=== PATIENT | female | born 1960 | race Caucasian/White ===

== ENCOUNTER 2018-02-08 11:33 | Emergency (ER) | payer BC ==
[2018-02-08 11:44] VITALS: RESP 18; TEMP 98.3
[2018-02-08 11:59] LABS: Appearance,Urine Clear (Clear); Bilirubin,Urine Negative (Negative); Blood,Urine Negative (Negative); Color,Urine Light Yellow; Glucose,Urine (UA) Negative (Negative); Ketones,Urine Negative (Negative); Leukocyte Esterase,Urine Negative (Negative); Nitrite,Urine Negative (Negative); Protein,Urine Negative (Negative); Specific Gravity,Urine 1.004 (1.001-1.035); Urobilinogen,Urine <2.0 mg/dL (<2.0)
[2018-02-08 12:24] LABS: Basophils % (A) 0 %; Eosinophils # (A) 0.1 k/uL (0-0.7); Eosinophils % (A) 1 %; HCT 45.5 % (34.0-46.0); HGB 15.7 gm/dL (11.4-16.0); Lymphocytes # (A) 1.1 k/uL (1.0-4.8); Lymphocytes % (A) 17 %; MCH 28.7 pg (25.0-35.0); MCHC 34.4 g/dL (31.0-37.0); MCV 83.3 fL (80.0-100.0); Mean Platelet Volume 6.8; Monocytes # (A) 0.3 k/uL (0-1.0); Monocytes % (A) 5 %; Neutrophils % (A) 76 %; Platelet Count 329 k/uL (150-450); RBC 5.46 m/uL (3.80-5.40); RDW 13.3 % (11.5-15.5); WBC 6.6 k/uL (3.8-10.6)
[2018-02-08 12:35] LABS: ALT 43 U/L (9-52); AST 27 U/L (14-36); Albumin 4.6 g/dL (3.5-5.0); Alkaline Phosphatase 73 U/L (38-126); Amylase 70 U/L (30-110); Anion Gap 12 mmol/L; Blood Urea Nitrogen 11 mg/dL (7-17); Calcium 10.5 mg/dL (8.4-10.2); Carbon Dioxide 29 mmol/L (22-30); Chloride 101 mmol/L (98-107); Glucose 105 mg/dL (74-99); Lipase 83 U/L (23-300); Potassium 4.1 mmol/L (3.5-5.1); Sodium 142 mmol/L (137-145); Total Bilirubin 0.4 mg/dL (0.2-1.3); Total Protein 7.5 g/dL (6.3-8.2)
[2018-02-08] MEDS ORDERED: KETOROLAC 60 MG/2 ML VIAL IM STA (12:47)
[2018-02-08] MEDS ORDERED: ONDANSETRON ODT 4 MG TAB PO STA (12:47)
--- NOTE | 2018-02-08 12:53 | ED ---
Abdominal Pain HPI - General Chief Complaint: Abdominal Pain Stated Complaint: Abd Pain Time Seen by Provider: 02/08/18 12:40 Source: patient, RN notes reviewed Mode of arrival: ambulatory Limitations: no limitations - History of Present Illness Initial Comments: This is a 57-year-old female presents emergency Department chief complaint of right upper quadrant abdominal pain. Patient has been having worsening pain last states last nephrology has worsened much more considerably. Patient was seen at [facility] yesterday for this pain and all sorts of gallstones. Patient has appointment tomorrow with Dr. Tian. Patient called office advised him come emergency department secondary to the pain. Patient states she 's also had nausea. She was not discharged with any pain medication or nausea medication yesterday. Patient reports no fever no chills. Denies any diarrhea no issues urinating including dysuria or hematuria. Patient felt slightly constipated. Patient denies any chest pain or shortness of breath. - Related Data Previous Rx's Medication Instructions Recorded Hydrocodone/Acetaminophen [[place] 1 tab PO Q6HR PRN #12 tab 02/08/18 5-325] Ondansetron Odt [Zofran Odt] 4 mg PO Q8HR PRN #10 tab 02/08/18 Allergies Allergy/AdvReac Type Severity Reaction Status Date / Time adhesive tape Allergy Rash/Hives Verified 02/08/18 11:44 Review of Systems ROS Statement: Those systems with pertinent positive or pertinent negative responses have been documented in the HPI. ROS Other: All systems not noted in ROS Statement are negative. Past Medical History Past Medical History: Hypertension Additional Past Medical History / Comment(s): herpes, gallstones History of Any Multi-Drug Resistant Organisms: None Reported Past Surgical History: Section Past Psychological History: No Psychological Hx Reported Smoking Status: Never smoker Past Alcohol Use History: Occasional Past Drug Use History: None Reported General Exam Limitations: no limitations General appearance: alert, in no apparent distress Head exam: Present: atraumatic, normocephalic, normal inspection Respiratory exam: Present: normal lung sounds bilaterally. Absent: respiratory distress, wheezes, rales, rhonchi, stridor Cardiovascular Exam: Present: regular rate, normal rhythm, normal heart sounds. Absent: systolic murmur, diastolic murmur, rubs, gallop, clicks GI/Abdominal exam: Present: soft, tenderness (Moderate right quadrant tenderness ), normal bowel sounds. Absent: distended, guarding, rebound, rigid Back exam: Absent: CVA tenderness (R), CVA tenderness (L) Skin exam: Present: warm, dry, intact, normal color. Absent: rash Course Vital Signs 02/08/18 11:41 Temperature 98.3 F Pulse Rate 90 Respiratory 18 Rate Blood Pressure 166/103 O2 Sat by Pulse 96 Oximetry Medical Decision Making - Medical Decision Making 57-year-old female presented emergency Department for right quadrant abdominal pain. Patient has known gallstones has appointment with surgeon tomorrow. Patient will be provided pain medication, nausea medication and discharged to her appointment tomorrow. - Lab Data Result diagrams: 02/08/18 12:10 02/08/18 12:10 Lab Results 02/08/18 02/08/18 02/08/18 Range/Units 11:46 12:10 12:10 WBC 6.6 (3.8-10.6) k/uL RBC 5.46 H (3.80-5.40) m/uL Hgb 15.7 (11.4-16.0) gm/dL Hct 45.5 (34.0-46.0) % MCV 83.3 (80.0-100.0) fL MCH 28.7 (25.0-35.0) pg MCHC 34.4 (31.0-37.0) g/dL RDW 13.3 (11.5-15.5) % Plt Count 329 (150-450) k/uL Neutrophils % 76 % Lymphocytes % 17 % Monocytes % 5 % Eosinophils % 1 % Basophils % 0 % Neutrophils # 5.0 (1.3-7.7) k/uL Lymphocytes # 1.1 (1.0-4.8) k/uL Monocytes # 0.3 (0-1.0) k/uL Eosinophils # 0.1 (0-0.7) k/uL Basophils # 0.0 (0-0.2) k/uL Sodium 142 (137-145) mmol/L Potassium 4.1 (3.5-5.1) mmol/L Chloride 101 (98-107) mmol/L Carbon Dioxide 29 (22-30) mmol/L Anion Gap 12 mmol/L BUN 11 (7-17) mg/dL Creatinine 0.80 (0.52-1.04) mg/dL Est GFR (CKD-EPI)AfAm >90 (>60 ml/min/1.73 sqM) Est GFR (CKD-EPI)NonAf 82 (>60 ml/min/1.73 sqM) Glucose 105 H (74-99) mg/dL Calcium 10.5 H (8.4-10.2) mg/dL Total Bilirubin 0.4 (0.2-1.3) mg/dL AST 27 (14-36) U/L ALT 43 (9-52) U/L Alkaline Phosphatase 73 (38-126) U/L Total Protein 7.5 (6.3-8.2) g/dL Albumin 4.6 (3.5-5.0) g/dL Amylase 70 (30-110) U/L Lipase 83 (23-300) U/L Urine Color Light Yellow Urine Appearance Clear (Clear) Urine pH 7.0 (5.0-8.0) Ur Specific [place] 1.004 (1.001-1.035) Urine Protein Negative (Negative) Urine Glucose (UA) Negative (Negative) Urine Ketones Negative (Negative) Urine Blood Negative (Negative) Urine Nitrite Negative (Negative) Urine Bilirubin Negative (Negative) Urine Urobilinogen <2.0 (<2.0) mg/dL Ur Leukocyte Esterase Negative (Negative) Disposition Clinical Impression: Gallstones, Abdominal pain Disposition: HOME SELF-CARE Condition: Stable Instructions: Abdominal Pain (ED), Gallstones (ED) Additional Instructions: Please return to the Emergency Department if symptoms worsen or any other concerns. Prescriptions: Hydrocodone/Acetaminophen [[place] 5-325] 1 tab PO Q6HR PRN #12 tab PRN Reason: Pain Ondansetron Odt [Zofran Odt] 4 mg PO Q8HR PRN #10 tab PRN Reason: Nausea Is patient prescribed a controlled substance at d/c from ED?: Yes When asked, does pt state using other controlled substances?: No If prescribed controlled substance>3 days was MAPS reviewed?: Prescribed <3 Days If opioid is for acute pain is fill amount 7 days or less?: Yes If Rx opioid, was Start Talking consent form obtained?: Yes Referrals: Denver Sapp MD [Primary Care Provider] - 1-2 days Autumn Kennedy MD [STAFF PHYSICIAN] - 1-2 days Time of Disposition: 12:53
[2018-02-08 13:09] VITALS: BP 140/90; PULSE 84
== END 2018-02-08 13:19 | disposition home or self-care (01) ==
LOC: EC 11:33 → MERGE 11:33 → EC 13:19
DX: K80.20 Calculus of gallbladder without cholecystitis without obstruction (principal); R10.11 Right upper quadrant pain; R11.0 Nausea; Z91.09 Other allergy status, other than to drugs and biological substances
CPT/HCPCS: 36415; 80053; 82150; 83690; 85025; 81003; 99284; 96372; J1885

== ENCOUNTER 2018-02-11 14:39 | Day surgery (SDC) | payer BC ==
--- NOTE | 2018-02-11 07:30 | P.GSHP ---
History of Present Illness H&P Date: 02/11/18 CHIEF COMPLAINT: Cholecystitis HISTORY OF PRESENT ILLNESS: The patient is a 57-year-old female who presents with history of epigastric including right upper quadrant abdominal pain. She underwent diagnostic studies for her gallbladder. Separately her clinical picture was consistent with cholecystitis. Now she presents for surgical intervention. PAST MEDICAL HISTORY: Please see list PAST SURGICAL HISTORY: Please see list MEDICATIONS: Please see list ALLERGIES: See above. SOCIAL HISTORY: No illicit drug use FAMILY HISTORY: Pertinent for gallbladder disease REVIEW OF ORGAN SYSTEMS: CONSTITUTIONAL: No reports of fevers or chills. HEENT: Denies any troubles with the vision or hearing. HEMATOLOGIC: No personal or family history of DVTs or pulmonary emboli. PHYSICAL EXAM: VITAL SIGNS: Afebrile vital signs stable GENERAL: Well-developed pleasant in no acute distress. HEENT: No scleral icterus. Extraocular movements grossly intact. Moist buccal mucosa. NECK: Supple without lymphadenopathy. CHEST: Unlabored respirations. Equal bilateral excursions. CARDIOVASCULAR: Regular rate regular rhythm rhythm. Distal 2+ pulses. ABDOMEN: Soft, nondistended. Tender along the epigastrium and right upper quadrant. MUSCULOSKELETAL: No clubbing, cyanosis, or edema. NEURO: Cranial nerves II to XII within normal limits. No focal or lateralizing signs. PSYCH: Alert and oriented to person, place and time. ASSESSMENT: 1. Epigastric and right upper quadrant abdominal pain 2. Chronic cholecystitis PLAN: 1. Will need a robotic cholecystectomy possible open. Benefits and risks were described. 2. Heparin for DVT prophylaxis 5000 units. 3. Antibiotic prophylaxis. Past Medical History Past Medical History: Hypertension Additional Past Medical History / Comment(s): herpes, gallstones History of Any Multi-Drug Resistant Organisms: None Reported Past Surgical History: Section Past Psychological History: No Psychological Hx Reported Smoking Status: Never smoker Past Alcohol Use History: Occasional Past Drug Use History: None Reported Medications and Allergies Home Medications Medication Instructions Recorded Confirmed Type Hydrocodone/Acetaminophen [[place] 1 tab PO Q6HR PRN #12 tab 02/08/18 Rx 5-325] Ondansetron Odt [Zofran Odt] 4 mg PO Q8HR PRN #10 tab 02/08/18 Rx Allergies Allergy/AdvReac Type Severity Reaction Status Date / Time adhesive tape Allergy Rash/Hives Verified 02/08/18 15:32
[~2018-02-11 14:39] MED LIST: HEPARIN SODIUM,PORCINE 5,000 UNIT/ML 1 ML VIAL SQ ONE; INDOCYANINE GREEN 25 MG VIAL IV STA; ceFAZolin IN SWFI 2 GM/20 ML SYRINGE IVP ONE
[2018-02-11] MEDS ORDERED: LACTATED RINGERS 1,000 ML IV ONE ×2 (15:39→18:40)
[2018-02-11] MEDS ORDERED: SCOPOLAMINE 1.5MG/72HR PATCH TRANSDERM ONE (15:39)
[2018-02-11] MEDS ORDERED: DEXAMETHASONE SOD PHOS (MDV) 100 MG/10 ML VIAL IVP ONE (15:44)
[2018-02-11] MEDS: ONDANSETRON 4 MG/2 ML VIAL IVP ONE ×2 (15:44→19:31)
[2018-02-11 15:51] LABS: Basophils % (A) 0 %; Eosinophils # (A) 0.1 k/uL (0-0.7); Eosinophils % (A) 1 %; HCT 44.3 % (34.0-46.0); HGB 14.7 gm/dL (11.4-16.0); Lymphocytes # (A) 1.2 k/uL (1.0-4.8); Lymphocytes % (A) 18 %; MCH 27.9 pg (25.0-35.0); MCHC 33.3 g/dL (31.0-37.0); Mean Platelet Volume 7.1; Monocytes # (A) 0.4 k/uL (0-1.0); Monocytes % (A) 5 %; Neutrophils # (A) 4.9 k/uL (1.3-7.7); Neutrophils % (A) 73 %; Platelet Count 314 k/uL (150-450); RBC 5.28 m/uL (3.80-5.40); RDW 13.1 % (11.5-15.5); WBC 6.7 k/uL (3.8-10.6)
[2018-02-11] MEDS ORDERED: ACETAMINOPHEN IV (For NPO) 1,000 MG in EMPTY BAG 1 BAG IVPB ONE (16:00)
[2018-02-11 16:01] LABS: ALT 42 U/L (9-52); AST 30 U/L (14-36); Albumin 4.6 g/dL (3.5-5.0); Alkaline Phosphatase 73 U/L (38-126); Anion Gap 12 mmol/L; Blood Urea Nitrogen 14 mg/dL (7-17); Calcium 9.8 mg/dL (8.4-10.2); Carbon Dioxide 30 mmol/L (22-30); Chloride 100 mmol/L (98-107); Glucose 98 mg/dL (74-99); Sodium 142 mmol/L (137-145); Total Bilirubin 0.5 mg/dL (0.2-1.3); Total Protein 7.7 g/dL (6.3-8.2)
[2018-02-11] MEDS ORDERED: BUPIVACAINE (PF) 0.5% 30 ML VIAL SQ ONE ×2 (17:48→18:13)
[2018-02-11] MEDS ORDERED: ROCURONIUM BROMIDE 10 MG/ML 10 ML VIAL IV ONE (17:50)
[2018-02-11] MEDS ORDERED: INDOCYANINE GREEN 25 MG VIAL IV ONE (17:50)
[2018-02-11] MEDS ORDERED: LIDOCAINE 1% INJ 10MG/ML (20 ML MDV) ONE (17:50)
[2018-02-11] MEDS ORDERED: HYDROmorphone (PF) 1 MG/ML ONE (17:50)
[2018-02-11] MEDS ORDERED: PROPOFOL 10 MG/ML 20 ML VIAL IV ONE (17:50)
[2018-02-11] MEDS ORDERED: NEOSTIGMINE 1 MG/ML 10 ML VIAL ONE (17:50)
[2018-02-11] MEDS ORDERED: ePHEDrine SULFATE/0.9% NACL/PF 50 MG/5 ML SYRINGE IV ONE (17:50)
[2018-02-11] MEDS ORDERED: fentaNYL (PF) 50 MCG/ML 2 ML AMP ONE (17:50)
[2018-02-11] MEDS ORDERED: KETOROLAC 30 MG/ML 1 ML VIAL ONE (17:50)
[2018-02-11] MEDS ORDERED: SUCCINYLCHOLINE CHLORIDE 100 MG/5 ML SYR IV ONE (17:50)
[2018-02-11] MEDS ORDERED: MIDAZOLAM 2 MG/2 ML VIAL ONE (17:50)
[2018-02-11] MEDS ORDERED: GLYCOPYRROLATE 0.2 MG/ML 2 ML VIAL ONE (17:50)
--- NOTE | 2018-02-11 19:21 | P.OP ---
Date of Procedure: 02/11/18 Description of Procedure: SURGEON: AUTUMN KENNEDY MD PREOPERATIVE DIAGNOSES: 1. Symptomatic gallstones 2. Chronic cholecystitis 3. Morbid obesity due to excess calories, BMI 44.3 4. Hypertensive heart disease POSTOPERATIVE DIAGNOSES: 1. Symptomatic gallstones 2. Chronic cholecystitis 3. Morbid obesity due to excess calories, BMI 44.3 4. Hypertensive heart disease OPERATION: Robotic-assisted da Radha Xi laparoscopic cholecystectomy, multiport with FIREFLY ESTIMATED BLOOD LOSS: 5 mL. SPECIMENS REMOVED: Gallbladder. COMPLICATIONS: None. OPERATIVE FINDINGS: 1. Symptomatic gallstones, 3 cm in size INDICATIONS: The patient is a 57-year-old female who presents with cholelcystitis. Surgical intervention with a laparoscopic cholecystectomy was described at length including injury to the biliary tree, bleeding, infection, need for further surgery. Informed consent was obtained. Robotic assisted laparoscopic approach was described. Benefits and risks of the procedure including but not limited to bleeding, infection, injury to the biliary tree was described. Informed consent was obtained. DESCRIPTION OF PROCEDURE: Patient was brought to the operating room, placed in supine position. After general induction, the abdomen had been prepped and draped in standard sterile fashion. The robotic da Radha XI system was primed. After a timeout protocol was performed, the patient had been prepped and draped in standard sterile fashion. The patient was injected with indocyanine green. A 5 mm 0 degrees laparoscopic trocar entry was performed along the left upper quadrant. The abdomen insufflated to 15 mmHg pressure which she tolerated well. Diagnostic laparoscopy demonstrated no injury to bowel viscera or mesentery. The liver surface was unremarkable. Next, two 8 mm robotic ports were placed along the right upper abdomen. The camera 8-mm port was maintained along the epigastrium. Another 8 mm port was placed along the left upper abdominal wall after exchanging the 5 mm port. Please note that the ports were placed at least 10 to 15 cm away from the target anatomy of the gallbladder. The robot was docked along the left lateral abdomen. The patient was repositioned in reverse Trendelenburg position. Using a grasper for arm 3, a grasper for arm 4, including hook cautery for arm 1 , the robotic system was docked and primed as described. Instruments were interchanged by the project assistant including hook cautery, Bovie cautery and clip appliers. I had sat at the console. Adhesions were identified along the infundibulum of the gallbladder and addressed using hook cautery. The gallbladder fundus was retracted over the dome of the liver. Initial attention was brought to the infundibulum which was gently retracted in the inferior lateral approach. Using a grasper, the cystic duct including the cystic artery was carefully skeletonized. FIREFLY was used to identify the cystic artery and cystic structures. Large PLASTIC clips were used throughout the entire case. Using a clip photograph developer 2 clips were placed proximally, and 1 clip was placed distally along the cystic duct and then cauterized with the cautery. Again care was taken to avoid any injury to the biliary tree as the common bile duct was clearly visualized during this portion of dissection. Next, the cystic artery was similarly clipped and cauterized. Electro-Bovie cautery was used to remove the gallbladder from the hepatic fossa. Hemostasis was checked and found to be adequate. The robot was undocked. I re-scrubbed into the case. Using a 10 mm Endo Catch bag via the left upper quadrant incision, the specimen was removed from the abdominal cavity. All pneumoperitoneum instruments were evacuated from the abdominal cavity. The incisions were reapproximated using 4-0 Monocryl in an interrupted subcuticular fashion. Fascial defect was closed using 0 Vicryl and Abelardo Wolff at the left upper quadrant. As the case was contaminated by 2 mL of bile, sponge was used to evacuate bile. All incisions were cleaned with dilute hydrogen peroxide followed by Optifoam at the left upper quadrant incision. Please note along the trocar sites, local anesthetic was placed as a field block prior to insertion of all instruments. Liquid glue was applied to the skin. At the end of the procedure needle, sponge, and instrument count had been verified correct by the nursing surgical services director. The patient was transferred to postanesthesia care unit in stable condition. Intraoperative films were shared with the patient's family who were very pleased with the level of care. Plan - Discharge Summary New Discharge Prescriptions: New Ibuprofen [Motrin] 600 mg PO Q8HR PRN #20 tab PRN Reason: Pain HYDROcodone/APAP 5-325MG [[place] 5-325] 1 tab PO Q4HR PRN 3 Days #18 tab PRN Reason: Pain No Action Hydrocodone/Acetaminophen [[place] 5-325] 1 tab PO Q6HR PRN #12 tab PRN Reason: Pain Ondansetron Odt [Zofran Odt] 4 mg PO Q8HR PRN #10 tab PRN Reason: Nausea Valsartan/Hydrochlorothiazide [[place] Hct 320-25 mg Tablet] 1 tab PO DAILY amLODIPine [Norvasc] 10 mg PO DAILY Acyclovir [Zovirax] 400 mg PO BID Discharge Medication List Hydrocodone/Acetaminophen [[place] 5-325] 1 tab PO Q6HR PRN #12 tab 02/08/18 [Rx] Ondansetron Odt [Zofran Odt] 4 mg PO Q8HR PRN #10 tab 02/08/18 [Rx] Acyclovir [Zovirax] 400 mg PO BID 02/11/18 [History] HYDROcodone/APAP 5-325MG [[place] 5-325] 1 tab PO Q4HR PRN 3 Days #18 tab [Rx] Ibuprofen [Motrin] 600 mg PO Q8HR PRN #20 tab 02/11/18 [Rx] Valsartan/Hydrochlorothiazide [Diovan Hct 320-25 mg Tablet] 1 tab PO DAILY 02/11 [History] amLODIPine [Norvasc] 10 mg PO DAILY 02/11/18 [History] Follow up Appointment(s)/Referral(s): Autumn Kennedy MD [STAFF PHYSICIAN] - 02/16/18 Patient Instructions/Handouts: *Surgery [facility] - (Anesthesia) Discharge Instructions Outpatient Surgery, *Surgery [facility] - Scopalamine Patch Instructions, Laparoscopic Cholecystectomy (DC) Activity/Diet/Wound Care/Special Instructions: May shower. No bath tub soaks. Low-fat diet. No lifting over 4 pounds 1 week. Discharge Disposition: HOME SELF-CARE
[2018-02-11 19:30] VITALS: TEMP 96.8
[2018-02-11 20:15] VITALS: RESP 16
[2018-02-11] MEDS ORDERED: HYDROcodone/APAP 5-325MG 1 EACH TAB PO ONE (20:28)
[2018-02-11 21:00] VITALS: BP 143/78; PULSE 83
== END 2018-02-11 21:52 | disposition home or self-care (01) ==
LOC: OR 14:39
PROVIDERS: ATTEND Surgery Plastic and Reconstructive Surgery
DX: K80.10 Calculus of gallbladder with chronic cholecystitis without obstruction (principal); K66.0 Peritoneal adhesions (postprocedural) (postinfection); E66.01 Morbid (severe) obesity due to excess calories; Z68.41 Body mass index [BMI] 40.0-44.9, adult; I11.9 Hypertensive heart disease without heart failure; K21.9 Gastro-esophageal reflux disease without esophagitis; Z91.048 Other nonmedicinal substance allergy status; Z79.899 Other long term (current) drug therapy; Z79.1 Long term (current) use of non-steroidal anti-inflammatories (NSAID)
CPT/HCPCS: 88304; 80053; 85025; 47562; J2250; J1644; J2710; J2405; J2001; J3010; J1885; J1170; J1100; J0330; J2704; J0690

== ENCOUNTER → 2018-12-22 | Outpatient (CLI) | payer BC ==
--- NOTE | 2018-12-22 11:30 | CT ---
EXAMINATION TYPE: CT abdomen pelvis wo con DATE OF EXAM: 12/22/2018 HISTORY: Stomach pains for months worse this week. Epigastric and left upper quadrant pain per order. CT DLP: 1157 mGycm. Automated Exposure Control for Dose Reduction was Utilized. TECHNIQUE: CT scan of the abdomen and pelvis is performed with oral but without IV contrast. COMPARISON: NONE FINDINGS: Within the limitations of a non-contrast study, the following observations are made. LUNG BASES: No significant abnormality is appreciated. LIVER/GB: Gallbladder is not visualized and presumed surgically absent though no distinct cholecystec michelle clips are present. PANCREAS: No significant abnormality is seen. SPLEEN: No significant abnormality is seen. ADRENALS: No significant abnormality is seen. KIDNEYS: No renal stones or hydronephrosis is seen bilaterally. BOWEL: Oral contrast reaches level of the rectum. Stomach shows satisfactory distention and is felt w ithin normal limits. No suspicious small or large bowel dilatation. Portions of distal colon are subo ptimally evaluated as are not well distended. GENITAL ORGANS: Anteverted uterus is seen which is slightly lobulated suggesting underlying fibroids particularly right aspect. No suspicious adnexal masses. Ovaries not well visualized. LYMPH NODES: No greater than 1cm abdominal or pelvic lymph nodes are appreciated. OSSEOUS STRUCTURES: No significant abnormality is seen. OTHER: There is left mid abdominal hernia defect axial image 46 along lateral aspect of rectus sheath containing mesenteric fat. I suspect incisional hernia from prior laparoscopic surgery as there is s car tissue at this level. IMPRESSION: No suspicious acute findings seen to account for patient's symptoms of stomach pain. Vent ral wall hernia left midabdomen favored incisional hernia containing mesenteric fat. Fibroid uterus s uspected.
== END | disposition home or self-care (01) ==
LOC: RADCTMAIN 09:29
PROVIDERS: ATTEND Family Medicine
DX: K43.9 Ventral hernia without obstruction or gangrene (principal)
CPT/HCPCS: 74176

== ENCOUNTER → 2019-09-21 | Outpatient (CLI) | payer BC ==
--- NOTE | 2019-09-21 14:05 | XR ---
EXAMINATION TYPE: XR abdomen 1V DATE OF EXAM: 09/21/2019 COMPARISON: NONE HISTORY: Abdominal pain TECHNIQUE: One view abdominal series FINDINGS: The osseous structures are intact. The bowel gas pattern is nonspecific. Tiny 2 mm calcification the right hemipelvis. This is nonspecific.. Hypertrophic and degenerative change of the vertebral column . Sclerosis involving the left iliac bone likely related to bone island. IMPRESSION: 1. Nonspecific abdomen.
== END ==
LOC: RADXRYALE 13:12
PROVIDERS: ATTEND Physician Assistant Medical
DX: R10.9 Unspecified abdominal pain (principal)
CPT/HCPCS: 74018

== ENCOUNTER 2021-11-23 18:44 | Emergency (ER) | payer OTHER ==
[2021-11-23 18:49] VITALS: TEMP 98
[2021-11-23] MEDS ORDERED: SODIUM CHLORIDE 0.9% 1,000 ML IV ONE (20:06)
[2021-11-23 20:27] LABS: Basophils # (A) 0.1 k/uL (0-0.2); Basophils % (A) 1 %; Eosinophils # (A) 0.1 k/uL (0-0.7); Eosinophils % (A) 1 %; HCT 43.2 % (34.0-46.0); HGB 14.4 gm/dL (11.4-16.0); Lymphocytes % (A) 12 %; MCH 29.6 pg (25.0-35.0); MCHC 33.4 g/dL (31.0-37.0); MCV 88.7 fL (80.0-100.0); Monocytes # (A) 0.4 k/uL (0-1.0); Monocytes % (A) 4 %; Neutrophils # (A) 7.3 k/uL (1.3-7.7); Neutrophils % (A) 81 %; Platelet Count 346 k/uL (150-450); RBC 4.87 m/uL (3.80-5.40); RDW 12.9 % (11.5-15.5); WBC 8.9 k/uL (3.8-10.6)
--- NOTE | 2021-11-23 20:30 | ED ---
General Adult HPI - General Chief complaint: Vaginal Bleeding Stated complaint: Vaginal Bleeding Time Seen by Provider: 11/23/21 19:35 Source: patient Mode of arrival: ambulatory Limitations: no limitations - History of Present Illness Initial comments: This 61-year-old female with past medical history of intravaginal herpes and hypertension presents emergency Department with vaginal bleeding that began this morning. Patient states she went through menopause and has not had any vaginal bleeding since 2017. Patient states she does get intravaginal herpes outbreaks 1-2 times a year and states sometimes when they pop she does experience a small amount of bleeding on the toilet paper, however she states this is different from those past experiences. She is unsure if she is currently having a herpes outbreak at this time she states she has not looked to see if anything was there. Patient states she does take Valtrex 1000 mg per day which she has been on for the last couple of years. Patient states this morning she wiped after using the bathroom and noticed a brownish red discoloration on her toilet paper. Patient states throughout the day she has been using a small pad in her underwear which there has been a small amount of brownish red discoloration on. Patient states her last Pap smear was 2 years ago. This was performed by her [facility] provider. Patient denies any vaginal pain or fever. Patient denies any chest pain, shortness of breath, nausea, vomiting, change in bowel or bladder, change in appetite, headache, lightheadedness, dizziness. Patient states she has been unable to eat today because she is very nervous that this could be cancer. Patient states she does usually have high blood pressure and does take medication for it and with her medication at usually remains around 130s over 80s. She states her blood pressure is so high right now that she is so nervous and anxious about having cancer, she was tearful at this time.. - Related Data Home Medications Medication Instructions Recorded Confirmed Acyclovir [Zovirax] 400 mg PO DAILY PRN 02/11/18 11/23/21 Valsartan/Hydrochlorothiazide 1 tab PO DAILY 02/11/18 11/23/21 [Diovan Hct 320-25 mg Tablet] Cetirizine HCl [Zyrtec] 10 mg PO DAILY 11/23/21 11/23/21 Ibuprofen [Motrin] 800 mg PO Q8H PRN 11/23/21 11/23/21 Multivit-Min/Folic Acid/Biotin 3 cap PO DAILY 11/23/21 11/23/21 [Hair, Skin and Nails Softgel] Multivitamins, Thera [Multivitamin 1 tab PO DAILY 11/23/21 11/23/21 (formulary)] amLODIPine [Norvasc] 5 mg PO DAILY 11/23/21 11/23/21 Previous Rx's Medication Instructions Recorded LORazepam [Ativan] 1 mg PO HS 3 Days #3 tab 11/23/21 Allergies Allergy/AdvReac Type Severity Reaction Status Date / Time adhesive tape Allergy Rash/Hives Verified 11/23/21 20:10 metronidazole [From Flagyl] Allergy Nausea & Verified 11/23/21 20:10 Vomiting Review of Systems ROS Statement: Those systems with pertinent positive or pertinent negative responses have been documented in the HPI. ROS Other: All systems not noted in ROS Statement are negative. Past Medical History Past Medical History: Hypertension Additional Past Medical History / Comment(s): herpes, gallstones History of Any Multi-Drug Resistant Organisms: None Reported Past Surgical History: Section, Cholecystectomy, Hernia Repair Past Psychological History: No Psychological Hx Reported Smoking Status: Never smoker Past Alcohol Use History: Occasional Past Drug Use History: None Reported General Exam Limitations: no limitations General appearance: alert, in no apparent distress Head exam: Present: atraumatic, normocephalic, normal inspection Eye exam: Present: normal appearance, PERRL, EOMI. Absent: scleral icterus, conjunctival injection, periorbital swelling ENT exam: Present: normal exam, mucous membranes moist Neck exam: Present: normal inspection. Absent: tenderness, meningismus, lymphadenopathy Respiratory exam: Present: normal lung sounds bilaterally. Absent: respiratory distress, wheezes, rales, rhonchi, stridor Cardiovascular Exam: Present: regular rate, normal rhythm, normal heart sounds. Absent: systolic murmur, diastolic murmur, rubs, gallop, clicks GI/Abdominal exam: Present: soft, normal bowel sounds. Absent: distended, tenderness, guarding, rebound, rigid External exam: Present: other (Brownish red vaginal discharge at vaginal opening. No herpes simplex, ulcers, blisters or abnormalities visualized) Speculum exam: Present: cervical discharge, vaginal bleeding, other (Small amount of vaginal bleeding that is reddish brown in color and vaginal canal and coming from cervical os which was closed. No visualization of herpes, lesions or ulcers) Extremities exam: Present: normal inspection, full ROM, normal capillary refill. Absent: tenderness, pedal edema, joint swelling, calf tenderness Back exam: Present: normal inspection, full ROM. Absent: CVA tenderness (R), CVA tenderness (L), paraspinal tenderness, vertebral tenderness Neurological exam: Present: alert, oriented X3, CN II-XII intact Psychiatric exam: Present: normal affect, normal mood Skin exam: Present: warm, dry, intact, normal color. Absent: rash Course Vital Signs 11/23/21 18:46 Temperature 98 F Pulse Rate 87 Respiratory 20 Rate Blood Pressure 204/112 O2 Sat by Pulse 96 Oximetry Medical Decision Making - Medical Decision Making This 61-year-old female presents emergency Department with vaginal bleeding sin ce this morning. Labs with white blood cells 8.9, hemoglobin 14.4, hematocrit 43.2, coagulations unremarkable, sodium 133, urine with large blood and small leukocyte esterase. Patient without any urinary symptoms at this time. Transvaginal ultrasound impression: Endometrial echogenicity that could relate to a polyp. No adnexal mass or free fluid. 1.0 cm hypoechoic area in the endometrium. Uterus with hypoechoic area right lower uterine segment-possible fibroid. Instructed patient to follow-up with [facility] and primary care provider early next week. I did give patient three 1mg Ativan tablets and instructed her to take them as directed for anxiety. Patient is very worried that this could be cancerous. Patient's blood pressure prior to discharge was 183/90, patient asymptomatic at this time and states she does need to take her nighttime dose of hypertension medication. Strict return precautions were discussed. Patient verbally agreed to plan. Patient sent home in stable condition. Case discussed in detail my attending, . - Lab Data Result diagrams: 11/23/21 20:18 11/23/21 20:18 Lab Results 11/23/21 11/23/21 11/23/21 Range/Units 20:18 20:18 20:18 WBC 8.9 (3.8-10.6) k/uL RBC 4.87 (3.80-5.40) m/uL Hgb 14.4 (11.4-16.0) gm/dL Hct 43.2 (34.0-46.0) % MCV 88.7 (80.0-100.0) fL MCH 29.6 (25.0-35.0) pg MCHC 33.4 (31.0-37.0) g/dL RDW 12.9 (11.5-15.5) % Plt Count 346 (150-450) k/uL MPV 7.0 Neutrophils % 81 % Lymphocytes % 12 % Monocytes % 4 % Eosinophils % 1 % Basophils % 1 % Neutrophils # 7.3 (1.3-7.7) k/uL Lymphocytes # 1.0 (1.0-4.8) k/uL Monocytes # 0.4 (0-1.0) k/uL Eosinophils # 0.1 (0-0.7) k/uL Basophils # 0.1 (0-0.2) k/uL PT 9.8 (9.0-12.0) sec INR 0.9 (<1.2) APTT 23.6 (22.0-30.0) sec Sodium (137-145) mmol/L Potassium (3.5-5.1) mmol/L Chloride (98-107) mmol/L Carbon Dioxide (22-30) mmol/L Anion Gap mmol/L BUN (7-17) mg/dL Creatinine (0.52-1.04) mg/dL Est GFR (CKD-EPI)AfAm (>60 ml/min/1.73 sqM) Est GFR (CKD-EPI)NonAf (>60 ml/min/1.73 sqM) Glucose (74-99) mg/dL Calcium (8.4-10.2) mg/dL Total Bilirubin (0.2-1.3) mg/dL AST (14-36) U/L ALT (4-34) U/L Alkaline Phosphatase (38-126) U/L Total Protein (6.3-8.2) g/dL Albumin (3.5-5.0) g/dL Urine Color Light Yellow Urine Appearance Cloudy H (Clear) Urine pH 6.5 (5.0-8.0) Ur Specific [place] 1.007 (1.001-1.035) Urine Protein Trace H (Negative) Urine Glucose (UA) Negative (Negative) Urine Ketones Negative (Negative) Urine Blood Large H (Negative) Urine Nitrite Negative (Negative) Urine Bilirubin Negative (Negative) Urine Urobilinogen <2.0 (<2.0) mg/dL Ur Leukocyte Esterase Small H (Negative) Urine RBC >182 H (0-5) /hpf Urine WBC 14 H (0-5) /hpf Ur Squamous Epith Cells <1 (0-4) /hpf Amorphous Sediment Rare H (None) /hpf Urine Bacteria Rare H (None) /hpf 11/23/21 Range/Units 20:18 WBC (3.8-10.6) k/uL RBC (3.80-5.40) m/uL Hgb (11.4-16.0) gm/dL Hct (34.0-46.0) % MCV (80.0-100.0) fL MCH (25.0-35.0) pg MCHC (31.0-37.0) g/dL RDW (11.5-15.5) % Plt Count (150-450) k/uL MPV Neutrophils % % Lymphocytes % % Monocytes % % Eosinophils % % Basophils % % Neutrophils # (1.3-7.7) k/uL Lymphocytes # (1.0-4.8) k/uL Monocytes # (0-1.0) k/uL Eosinophils # (0-0.7) k/uL Basophils # (0-0.2) k/uL PT (9.0-12.0) sec INR (<1.2) APTT (22.0-30.0) sec Sodium 133 L (137-145) mmol/L Potassium 3.9 (3.5-5.1) mmol/L Chloride 97 L (98-107) mmol/L Carbon Dioxide 26 (22-30) mmol/L Anion Gap 10 mmol/L BUN 13 (7-17) mg/dL Creatinine 0.84 (0.52-1.04) mg/dL Est GFR (CKD-EPI)AfAm 86 (>60 ml/min/1.73 sqM) Est GFR (CKD-EPI)NonAf 75 (>60 ml/min/1.73 sqM) Glucose 112 H (74-99) mg/dL Calcium 9.4 (8.4-10.2) mg/dL Total Bilirubin 0.4 (0.2-1.3) mg/dL AST 29 (14-36) U/L ALT 23 (4-34) U/L Alkaline Phosphatase 70 (38-126) U/L Total Protein 7.5 (6.3-8.2) g/dL Albumin 4.3 (3.5-5.0) g/dL Urine Color Urine Appearance (Clear) Urine pH (5.0-8.0) Ur Specific [place] (1.001-1.035) Urine Protein (Negative) Urine Glucose (UA) (Negative) Urine Ketones (Negative) Urine Blood (Negative) Urine Nitrite (Negative) Urine Bilirubin (Negative) Urine Urobilinogen (<2.0) mg/dL Ur Leukocyte Esterase (Negative) Urine RBC (0-5) /hpf Urine WBC (0-5) /hpf Ur Squamous Epith Cells (0-4) /hpf Amorphous Sediment (None) /hpf Urine Bacteria (None) /hpf Disposition Clinical Impression: Dysfunctional uterine bleeding Disposition: HOME SELF-CARE Condition: Stable Instructions (If sedation given, give patient instructions): Abnormal (Dysfunctional) Uterine Bleeding (ED) Additional Instructions: Please follow-up with your primary care provider and [facility] in next 24-48 hours. Return to the emergency department with any new, worsening, or concerning symptoms. Prescriptions: LORazepam [Ativan] 1 mg PO HS 3 Days #3 tab Is patient prescribed a controlled substance at d/c from ED?: No Referrals: Seymour Ellis DO [Primary Care Provider] - 1-2 days Mac Daniels MD [STAFF PHYSICIAN] - 1-2 days Time of Disposition: 21:45
[2021-11-23 20:36] LABS: INR 0.9 (<1.2); Partial Thromboplastin Time 23.6 sec (22.0-30.0); Prothrombin Time 9.8 sec (9.0-12.0)
[2021-11-23 20:37] LABS: Amorphous Sediment,Urine Rare /hpf; Appearance,Urine Cloudy (Clear); Bacteria,Urine Rare /hpf; Bilirubin,Urine Negative (Negative); Blood,Urine Large (Negative); Color,Urine Light Yellow; Glucose,Urine (UA) Negative (Negative); Ketones,Urine Negative (Negative); Leukocyte Esterase,Urine Small (Negative); Nitrite,Urine Negative (Negative); PH, Urine 6.5 (5.0-8.0); Protein,Urine Trace (Negative); RBC,Urine >182 /hpf (0-5); Specific Gravity,Urine 1.007 (1.001-1.035); Squamous Epithelial Cell,Urine <1 /hpf (0-4); Urobilinogen,Urine <2.0 mg/dL (<2.0); WBC,Urine 14 /hpf (0-5)
[2021-11-23 20:39] LABS: Albumin 4.3 g/dL (3.5-5.0); Calcium 9.4 mg/dL (8.4-10.2); Potassium 3.9 mmol/L (3.5-5.1); Total Bilirubin 0.4 mg/dL (0.2-1.3); Total Protein 7.5 g/dL (6.3-8.2)
[2021-11-23] MEDS ORDERED: LORazepam 2 MG/ML INJ IV STA (20:47)
--- NOTE | 2021-11-23 21:32 | US ---
EXAMINATION TYPE: US transvaginal DATE OF EXAM: 11/23/2021 COMPARISON: CT 2019 CLINICAL HISTORY: Postmenopausal vaginal bleeding. Postmenopausal bleeding x 1 day, cramping TECHNIQUE: Transvaginal ER exam Date of LMP: Unknown EXAM MEASUREMENTS: Uterus: 6.2 x 2.9 x 3.9 cm Endometrial Stripe: 1.1 cm Right Ovary: not seen Left Ovary: not seen 1. Uterus: limited visualization, heterogeneous, 2.1 x 2.2 x 2.1cm hypoechoic area right lower uteri ne segment - possible fibroid 2. Endometrium: limited visualization, appears thickened, fluid seen within endo, 1.0cm hypoechoic a amador 3. Right Ovary: not seen due to overlying bowel gas 4. Left Ovary: not seen due to overlying bowel gas 5. Bilateral Adnexa: wnl 6. Posterior cul-de-sac: wnl IMPRESSION: There is some endometrial echogenicity that could relate to a polyp. No adnexal mass or free fluid.
[2021-11-23 22:17] VITALS: BP 174/88; PULSE 81; RESP 16
== END 2021-11-23 22:18 | disposition home or self-care (01) ==
LOC: EC 18:44
DX: N93.8 Other specified abnormal uterine and vaginal bleeding (principal); I10 Essential (primary) hypertension; Z91.09 Other allergy status, other than to drugs and biological substances; Z88.8 Allergy status to other drugs, medicaments and biological substances; Z79.899 Other long term (current) drug therapy
CPT/HCPCS: 36415; 80053; 85025; 85610; 85730; 81001; 87086; 76830; 99284; 96374; 96361; J2060

== ENCOUNTER → 2021-12-17 | Outpatient (CLI) | payer OTHER | END | disposition home or self-care (01) | LOC: LABPAT 09:51 | PROVIDERS: ATTEND Obstetrics & Gynecology | DX: Z01.812 Encounter for preprocedural laboratory examination (principal) | CPT/HCPCS: 93005 ==

== ENCOUNTER 2021-12-20 05:49 | Day surgery (SDC) | payer OTHER ==
[2021-12-18 12:23] VITALS: BMI 42.9
--- NOTE | 2021-12-19 07:59 | P.HPOB ---
History of Present Illness H&P Date: 12/19/21 Chief Complaint: Postmenopausal bleeding This patient is a pleasant 61-year-old 2 para 2 female who presented to me in follow-up from the emergency department for postmenopausal bleeding. Patient states that she went to the bathroom and middle of November and noticed s ome dark red blood when she wiped. Patient went to the emergency department ultrasound showed endometrial thickening of 1.1 cm questionable endometrial polyp. Patient now presents for hysteroscopy and D&C for further evaluation. Review of Systems Genitourinary: Reports as per HPI, Reports abnormal vaginal bleeding Menstruation: Reports postmenopausal Past Medical History Past Medical History: GERD/Reflux, Hypertension, Osteoarthritis (OA) Additional Past Medical History / Comment(s): Herpes. Wearing right knee brace, due to injury, had Cortisone shot about 6 weeks ago. History of Any Multi-Drug Resistant Organisms: None Reported Past Surgical History: Section, Cholecystectomy, Hernia Repair Additional Past Surgical History / Comment(s): Cortisone shot right knee. Past Anesthesia/Blood Transfusion Reactions: No Reported Reaction Past Psychological History: No Psychological Hx Reported Smoking Status: Never smoker Past Alcohol Use History: Occasional Past Drug Use History: Marijuana Additional Drug Use History / Comment(s): CBD use occasionally, none in 6 months. Aware no use 24 hrs prior to procedure. - Past Family History Brother(s) Family Medical History: Cancer Additional Family Medical History / Comment(s): Lung cancer. Medications and Allergies Home Medications Medication Instructions Recorded Confirmed Type Valsartan/Hydrochlorothiazide 1 tab PO QAM 02/11/18 12/18/21 History [Diovan Hct 320-25 mg Tablet] Cetirizine HCl [Zyrtec] 10 mg PO DAILY 11/23/21 12/18/21 History Ibuprofen [Motrin] 800 mg PO Q8H PRN 11/23/21 12/18/21 History Multivitamins, Thera [Multivitamin 1 tab PO DAILY 11/23/21 12/18/21 History (formulary)] amLODIPine [Norvasc] 5 mg PO QAM 11/23/21 12/18/21 History valACYclovir HCL 1,000 mg PO DAILY 12/18/21 12/18/21 History Allergies Allergy/AdvReac Type Severity Reaction Status Date / Time adhesive tape Allergy Rash/Hives Verified 12/18/21 12:08 metronidazole [From Flagyl] Allergy Nausea & Verified 12/18/21 12:08 Vomiting Exam - OBG Physical Exam Abdomen: bowel sounds normal, no diffuse tenderness, no bruit present, no guarding noted, no hepatomegaly, no splenomegaly, no mass Vulva: both: normal Vagina: atrophic mucosa Cervix: no lesion, no discharge Uterus: normal size, normal contour Results Patient had a transvaginal ultrasound showed endometrial thickening of 1.1 cm and a questionable endometrial polyp. Assessment and Plan Assessment: This is a pleasant 61-year-old 2 para 2 female with an episode of postmenopausal bleeding and abnormal pelvic ultrasound showing endometrial thickening, possible endometrial polyp. Plan is hysteroscopy and dilation and curettage for further evaluation. Patient does understand this procedure and risks and risks of infection, bleeding, possible uterine perforation. All the patient's questions have been answered and written consent obtained. (1) Postmenopausal bleeding Status: Acute Code(s): N95.0 - POSTMENOPAUSAL BLEEDING SNOMED Code(s): 09253715 (2) Endometrial thickening on ultrasound Status: Acute Code(s): R93.89 - ABNORMAL FINDINGS ON DX IMAGING OF OTH BODY STRUCTURES SNOMED Code(s): 653910169
[~2021-12-20 05:49] MED LIST changes: +DEXAMETHASONE SOD PHOSPHATE 4 MG/ML 1 ML VIAL IV ONE; -HEPARIN SODIUM,PORCINE 5,000 UNIT/ML 1 ML VIAL SQ ONE; -INDOCYANINE GREEN 25 MG VIAL IV STA; +LACTATED RINGERS 1,000 ML IV SCH; +LIDOCAINE 1% (10MG/ML) FOR IV START INTRADERMA PRN; +ONDANSETRON 4 MG/2 ML VIAL IVP ONE; +Pre Op ABX Message 1 EACH MISC MISCELLANE ONE; -ceFAZolin IN SWFI 2 GM/20 ML SYRINGE IVP ONE
[2021-12-20] MEDS ORDERED: LACTATED RINGERS 1,000 ML IV ONE (06:11)
[2021-12-20] MEDS ORDERED: ONDANSETRON 4 MG/2 ML VIAL ONE (06:24)
[2021-12-20] MEDS ORDERED: ONDANSETRON 4 MG/2 ML VIAL IVP ONE (06:39)
[2021-12-20] MEDS ORDERED: DEXAMETHASONE SOD PHOSPHATE 4 MG/ML 1 ML VIAL IVP ONE (06:39)
[2021-12-20] MEDS ORDERED: MIDAZOLAM 2 MG/2 ML VIAL IVP ONE (06:45)
[2021-12-20] MEDS ORDERED: HYDROmorphone 0.5 MG/0.5 ML SYRINGE IVP PRN (07:00)
[2021-12-20] MEDS ORDERED: PROPOFOL 10 MG/ML 20 ML VIAL IV ONE (07:10)
[2021-12-20] MEDS ORDERED: SUCCINYLCHOLINE CHLORIDE 100 MG/5 ML SYR IV ONE (07:10)
[2021-12-20] MEDS ORDERED: fentaNYL (PF) 50 MCG/ML 2 ML AMP ONE (07:10)
[2021-12-20] MEDS ORDERED: MIDAZOLAM 2 MG/2 ML VIAL ONE (07:10)
[2021-12-20] MEDS ORDERED: LIDOCAINE 2% INJ 20 MG/ML (2 ML VIAL) ONE (07:10)
--- NOTE | 2021-12-20 07:48 | P.OP ---
Date of Procedure: 12/20/21 Preoperative Diagnosis: Post menopausal bleeding with endometrial thickening on ultrasound Postoperative Diagnosis: Same, endometrial polyps Procedure(s) Performed: Hysteroscopy and dilation and curettage Anesthesia: MABEL Surgeon: Mac Daniels Estimated Blood Loss (ml): 20 Urine output (ml): 50 Pathology: other (Uterine curettings) Condition: stable Disposition: PACU Indications for Procedure: Please see dictated H&P for intimate details of this patient's admission. In brief summary this is a pleasant 61-year-old 2 para 2 female who is referred to me for follow-up from the ER for postmenopausal bleeding and pelvic ultrasound showed endometrial thickening possible polyps. Patient presents for hysteroscopy D&C for further evaluation. Patient does understand the surgery and risks and risks of infection, bleeding, possible uterine perforation. All the patient's questions are answered and a written consent is obtained. Operative Findings: This patient had endometrial cavity with benign appearing endometrial polyps. There were multiple polyps. Description of Procedure: This patient is taken to the operating room where she is laid in the supine position. She subsequently undergoes general endotracheal anesthesia without incident. With an adequate level of anesthesia she's placed in dorsal lithotomy position. She has a vaginal perineal prep and drape. Examination under anesthesia shows a mid position uterus of normal size for postmenopausal woman. Weighted speculum was placed the posterior vagina. The bladder is drained for 50 mL of clear urine. Allis clamp was placed on the anterior lip of the cervix. I then gently sound the uterus to 7.5 cm. The cervix is then gently dilated to allow the hysteroscope easily and uterine cavity. Using saline solution hyste roscopy is performed. Immediately there is noted a polyp approximately 1 cm in dimension. Behind this area several other polyps. These all appear benign on gross appearance. This done the hysteroscope was removed. Cervix is dilated more to allow the polyp forceps into the uterine cavity. Multiple passes are made and several polyps are removed. A vigorous and thorough 4 quadrant curettage is then done. Adequate sampling is done. With this completed the procedure is ended. The Allis clamp and weighted speculum removed. All counts are correct 3. There are no complications. Patient is taken to the recovery room in satisfactory condition.
[2021-12-20 08:08] VITALS: TEMP 96.8
[2021-12-20 08:15] VITALS: RESP 16
[2021-12-20 08:46] VITALS: BP 145/85; PULSE 80
== END 2021-12-20 09:24 | disposition home or self-care (01) ==
LOC: OR 05:49
PROVIDERS: ATTEND Obstetrics & Gynecology
DX: N95.0 Postmenopausal bleeding (principal); N84.0 Polyp of corpus uteri; I10 Essential (primary) hypertension; K21.9 Gastro-esophageal reflux disease without esophagitis; M17.11 Unilateral primary osteoarthritis, right knee; Z79.1 Long term (current) use of non-steroidal anti-inflammatories (NSAID); Z80.1 Family history of malignant neoplasm of trachea, bronchus and lung; Z88.1 Allergy status to other antibiotic agents; Z90.49 Acquired absence of other specified parts of digestive tract; Z88.8 Allergy status to other drugs, medicaments and biological substances; Z79.899 Other long term (current) drug therapy
CPT/HCPCS: 58558; J2250; J1100; J2405; J3010; J0330; J2704; J2001; 88305

== ENCOUNTER → 2023-10-19 | Outpatient (CLI) | payer OTHER ==
--- NOTE | 2023-10-19 15:14 | XR ---
Three-view left knee. DATE: 10/19/2023. COMPARISON: None available. Clinical history: Posterior and anterior knee pain for 2 weeks after strain injury. FINDINGS: There is no fracture, subluxation or dislocation. There is mild medial and lateral compartment joint space narrowing with marginal spurring. No effusio ns are seen. IMPRESSION: Mild degenerative changes with no acute osseous abnormalities.
== END | disposition home or self-care (01) ==
LOC: RADXRYALE 14:16
PROVIDERS: ATTEND Physician Assistant
DX: M17.12 Unilateral primary osteoarthritis, left knee (principal)